=== PATIENT | female | born 1945 | race Caucasian/White ===

== ENCOUNTER 2017-08-03 22:20 | Emergency (ER) | payer MEDICARE, BC ==
--- NOTE | 2017-08-03 23:38 | ED ---
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 Patient states she landed on her knees and hit her glasses on the floor causing her laceration over bridge of nose. Admits to swelling and bruising. Denies trouble breathing through the nose and vision changes. Did not hit her head. Denies anticoagulant use. Denies epistaxis. Denies dizziness. Right wrist is painful with movement however she is able to move it. States her right hand/wrist slammed down onto the floor she did not fall on outstretched hand. Also states of skin abrasion to right knee however is not painful. Denies any other injuries or pain at this time. No other complaints. 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 Bleeding is controlled. Did not hit back of head. PMHx HTN and thyroid disease. Denies numbness/tingling. Denies neck pain, headache, abdominal pain and weakness. - History of Current Complaint Stated Complaint: RT WRIST INJURY/NOSE LAC Hx Obtained From: Patient, Family/Internal Revenue Agent - Onset/Duration: Sudden Onset Aggravating: Nothing Alleviating: Compression Timing: Constant Onset Severity: Mild Current Severity: Mild Pain Intensity: 5 Pain Scale Used: 0-10 Numeric - Allergy/Home Medications Allergies/Adverse Reactions: Allergies Allergy/AdvReac Type Severity Reaction Status Date / Time Flu Virus Vaccine Allergy Edema Verified 10/31/15 10:13 Tetanus Toxoid Allergy Edema Verified 10/31/15 10:12 PMH/Surg Hx/FS Hx/Imm Hx Endocrine/Hematology History: Reports: Hx Thyroid Disease Cardiovascular History: Reports: Hx Hypertension - Cancer History Hx Chemotherapy: No Hx Radiation Therapy: No - Surgical History Surgery Procedure, Year, and Place: n/a - Immunization History Date of Tetanus Vaccine: Allergy Date of Influenza Vaccine: Allergy Immunizations Up to Date: Yes Infectious Disease History: No Infectious Disease History: Denies: Traveled Outside the [place] in Last 30 Days - Family History Known Family History: Positive: Hypertension - Social History Alcohol Use: Occasionally Substance Use Type: Reports: None Smoking Status (MU): Never Smoked Tobacco Review of Systems Constitutional: Negative Cardiovascular: Negative Respiratory: Negative Positive: Arthralgia, Myalgia, Decreased ROM, Edema - right hand/wrist Positive: Bruising - nasal bridge, Other - laceration, Neurological: Negative All Other Systems Reviewed And Are Negative: Yes Physical Exam Triage Information Reviewed: Yes Vital Signs On Initial Exam: Initial Vitals Temp Pulse Resp BP Pulse Ox 97.5 F 64 16 163/95 98 08/03/17 22:25 08/03/17 22:25 08/03/17 22:25 08/03/17 22:25 08/03/17 22:25 Vital Signs Reviewed: Yes Appearance: Positive: Well-Appearing, No Pain Distress, Well-Nourished Skin: Positive: Warm, Skin Color Reflects Adequate Perfusion, Dry, Other - 1cm linear laceration to bride of nose, bleeidng well controlled, well approximated without FB. minor small abrasion to right anterior knee w/o bleeding. Negative : Cold, Cyanosis @, Pale Head/Face: Positive: Other - nasal bridge laceration as noted above with surrounding edema and ecchymosis. Negative: Scalp - without hematoma Eyes: Positive: Normal, EOMI, Conjunctiva Clear ENT: Positive: Normal ENT inspection, Hearing grossly normal, Pharynx normal, Other - no septal hematoma, normal patent nares bl, no sign of epistaxis. Negative: Nasal congestion, Nasal drainage Neck: Positive: Supple, Nontender Respiratory/Lung Sounds: Positive: Clear to Auscultation, Breath Sounds Present. Negative: Rales, Rhonchi, Wheezes Cardiovascular: Positive: Normal, RRR, Pulses are Symmetrical in both Upper and Lower Extremities. Negative: Murmur, Rub Bowel Sounds: Positive: Present Musculoskeletal: Positive: Normal, Strength/ROM Intact, Pain @ - with movement and palpation of right wrist hand, however able and FROM, Edema Right - wrist/ hand mild when compared to left, Other - rest of MSK exam normal including right knee. Negative: Limited @, Interruption @, Abnormal @ Neurological: Positive: Normal, Sensory/Motor Intact, Alert, Oriented to Person Place, Time, CN Intact II-III, Reflexes Intact, NV Bundle Intact Distally, Normal Gait - Wendy Coma Scale Coma Scale Total: 15 Procedures - Laceration/Wound Repair 1 Location: face - nasal bridge Description: Stellate Length, Depth and Shape: ~1cm Betadine Prep?: No Irrigated w/ Saline (ccs): 200 Laceration/Wound Explored: clean, no foreign body removed Closure: Skin Adhesive, SteriStrips - 2 Sterile Dressing Applied?: Yes - telfa Diagnostics - Vital Signs Vital Signs Temp Pulse Resp BP Pulse Ox 08/03/17 22:25 97.5 F 64 16 163/95 98 - Laboratory Lab Statement: Any lab studies that have been ordered have been reviewed, and results considered in the medical decision making process. - Radiology right hand/wrist Xray Interpretation: No Acute Changes - negative, arthitic changes Radiology Interpretation Completed By: ED Physician - Dr Omalley - CT maxillofacial CT Interpretation: Positive (See Comments) - nasal bridge comminuted and mildly depressed fracture CT Interpretation Completed By: Radiologist - and myself Re-Evaluation - Re-Evaluation First Eval Re-Evaluation Time: 12:00 Change: Unchanged - patient still feeling fine without significant pain. updated on xray results, aware still awaiting for CT results Laceration Repair Course/Dx - Course Course Of Treatment: laceration was glued and steri stripped without complication. patient tolerate procedure well. well approximated. wrist/hand xray and CT maxillofacial obtained to r/o james. did show nasal bone fracture. will treat as open fracture due to laceration. given first dose of keflex at ED, continue at home. knee was dressed with triple anitbiotic ointment and bandage. no other concerns at this time. otherwise healthy individual. aware of worsening signs and symptoms. no other complaints, slightly elevated BP that improved at discharge. Patient already diagnosed with HTN encouraged to recheck with PCP. Ice and continue tylenol/ibuprofen as needed. Follow up with PCP and ENT. Leland wrap for hand to help with swelling, re- image if pain increases/worsens/persists. - Differential Dx Differental Diagnoses: Abrasion, Fracture, Laceration, Other - hand sprain, hand fracture, knee abrasion, hand contusion, nose laceration, nasal fracture, open fracture - Clinical Impression Provider Diagnoses: Contusion of hand, right, Laceration of nose, Abrasion of knee, right, Open nasal fracture Discharge - Discharge Plan Condition: Stable Disposition: HOME Prescriptions: Cephalexin CAP* [Keflex CAP*] 250 mg PO TID #29 cap Patient Education Materials: Nasal Fracture (ED), Laceration (ED), Contusion in Adults (ED), Skin Adhesive Care (ED) Referrals: Durant,Shital, MD [Primary Care Provider] - Abhi Villanueva MD [Medical Doctor] - Additional Instructions: Do not get laceration wet for 24-48 hours. Keep clean and dry. Let steri strips and glue remove themselves, do not pick at. Once fall off, apply triple anitbiotic ointment. Take prescribed antibiotic as directed. Please call and make an appointment with ENT for follow up on nasal fracture. Any new or worsening symptoms please seek medical attention promptly. Follow up with PCP. Continue tylenol/ibuprofen as needed for pain, apply ice for bruising and swelling.
[2017-08-04] MEDS ORDERED: Cephalexin CAP* 500 MG PO ONE (01:24)
[2017-08-04 02:54] VITALS: BP 145/77
--- NOTE | 2017-08-04 07:38 | RAD ---
Indication: Fall. Right wrist injury 3 views of the right wrist demonstrates no definite fracture. Degenerative changes of the first carpometacarpal joint as well as the scaphotrapezium joint is noted. IMPRESSION: No definite fracture of the wrist is noted although degenerative changes are noted.
--- NOTE | 2017-08-04 07:43 | RAD ---
Indication: Right hand injury. 2 views of the right hand demonstrates subluxation of the fifth metacarpal. No fractures are noted. Degenerative changes of the trapezium first metacarpal joint is noted. Additional imaging is suggested. IMPRESSION: There appears to be subluxation of the fifth metacarpal from the hamate.
--- NOTE | 2017-08-04 07:53 | RAD ---
Indication: Facial injury after fall. CT of the facial bones was obtained in the axial plane. Sagittal and coronal reconstructed images were obtained. The skull base demonstrates no fracture. Mastoid air cells and ethmoid air cells are unremarkable. The mandible and temporomandibular joints are unremarkable. No fracture is noted. The maxilla and the pterygoid plates are intact without evidence of fracture. There is a minimally comminuted fracture of the nasal arch. There is slight deviation of the bony structures towards the right. The skull base demonstrates no fracture. IMPRESSION: Mildly Comminuted fracture of the nasal arch. Slight nasal deviation to the right is noted. No other fractures are identified.
== END 2017-08-04 01:35 | disposition home or self-care (01) ==
LOC: ED 22:20
DX: S02.2XXB Fracture of nasal bones, initial encounter for open fracture (principal); S60.221A Contusion of right hand, initial encounter; S80.211A Abrasion, right knee, initial encounter; W10.9XXA Fall (on) (from) unspecified stairs and steps, initial encounter; Y92.9 Unspecified place or not applicable; Z88.7 Allergy status to serum and vaccine
CPT/HCPCS: 12011; 70486; 99282; A9270-GY

== ENCOUNTER 2017-08-12 15:50 | Day surgery (SDC) | payer MEDICARE, BC ==
[2017-08-12] MEDS ORDERED: Buffered Lidocaine 0.9% SYRIN* 5 ML/SYR SYRINGE ONE (16:03)
[2017-08-12] MEDS ORDERED: ceFAZolin 2 GM PREMIX (*) 2 GM/50 ML BAG IVPB ONE (17:33)
[2017-08-12] MEDS ORDERED: Ketorolac INJ* 30 MG/ML 1 ML VIAL ONE (17:37)
[2017-08-12] MEDS ORDERED: Propofol* 10 MG/ML 20 ML BTL IV PUSH ONE ×2 (17:37→19:03)
[2017-08-12] MEDS ORDERED: Dexamethasone IV* 4 MG/ML 1 ML (4 MG) ONE (17:37)
[2017-08-12] MEDS ORDERED: Ondansetron INJ* 2 MG/ML VIAL ONE (17:37)
[2017-08-12] MEDS ORDERED: Midazolam* 1 MG/ML 2 ML VIAL (2 MG) ONE (17:38)
[2017-08-12] MEDS ORDERED: fentaNYL* 50 MCG/ML 2 ML VIAL (100 MCG VIAL) ONE ×2 (17:38→18:28)
[2017-08-12] MEDS ORDERED: Bupivacaine 0.25% SDV* 30 ML ONE (17:39)
[2017-08-12] MEDS ORDERED: DiMENhydriNATE IV* 50 MG/ML VIAL IV PUSH PRN (18:25)
[2017-08-12] MEDS ORDERED: Naloxone* 0.4 MG/ML 1 ML VIAL IV PRN (18:25)
[2017-08-12] MEDS ORDERED: HYDROcodone/ACETAMIN 5-325 MG* 1 TAB PO PRN (18:25)
[2017-08-12] MEDS ORDERED: fentaNYL* 50 MCG/ML 2 ML VIAL (100 MCG VIAL) IV PRN (18:25)
[2017-08-12] MEDS ORDERED: Ondansetron INJ* 2 MG/ML VIAL IV PRN (18:25)
[2017-08-12 20:30] VITALS: BP 131/64
[2017-08-12] MEDS: oxyCODONE/Acetamin 5/325 MG* TAB PO PRN ×2 (20:53→20:54)
[2017-08-12] MEDS ORDERED: oxyCODONE/Acetamin 5/325 MG* TAB ONE (20:53)
--- NOTE | 2017-08-14 01:36 | OP ---
DATE OF OPERATION: 08/12/17 - [facility] DATE OF : 49 SURGEON: Gavino Jacobsen MD DRAINAGE INSPECTOR: MERCY Dean ANESTHESIOLOGIST: Dr. Urena. ANESTHESIA: General. PRE-OP DIAGNOSIS: Right 5th carpometacarpal dislocation. POST-OP DIAGNOSIS: Right 5th carpometacarpal dislocation. OPERATIVE PROCEDURE: Open reduction and internal fixation, right 5th carpometacarpal dislocation. ESTIMATED BLOOD LOSS: 2 mL. COMPLICATIONS: None. INDICATIONS: Alexa had a fall about a week before surgery. The 5th CMC joint had dislocated volarly. I told her about the need to align and to reduce and to pin the joint. She understood this and I told her that I tried to do it close before and it reduced close, we would do an open. FINDINGS: The joint was extremely unstable. I could not get the rotation corrected via closed reduced, so we proceeded to open reduction. DESCRIPTION OF PROCEDURE: Alexa was seen in the preoperative holding area. The correct site, side, and procedure were identified. We came back to the operating room. The arm was prepped and draped in the usual fashion. A time- out was performed. I began by attempting a closed reduction maneuver using the mini C-arm to confirm the reduction. I could get it closed, but I could never get it derotated. I tried several times. It was extremely unstable. I could overcorrect and it would go out dorsally. It also wanted to go out ulnarly and volarly. Ultimately, it failed to reduce satisfactorily closed and so, we decided to open the joint. The arm was exsanguinated with the Esmarch and the tourniquet inflated to 250 mmHg. I made a lazy-S incision over the dorsal aspect of the right 5th CMC joint. Dissection was carried down to the subcutaneous tissue. I came just radial to the extensor tendons to the small finger. I opened up the capsule and raised subperiosteal and capsular flaps to expose the 5th CMC joint. There was abundant interposed soft tissue between the base of the 4th and base of the 5th metacarpal. This was all excised with a rongeur, copious irrigation, and suction. Once I had this all removed, I could reduce the joint. I placed one 0.045 K-wire across the base of the 5th and into the base of the 4th metacarpal. I took a second 0.062 K- wire and drilled it across the base of the 5th metacarpal down into the carpus. The joint was nicely reduced. The alignment was now completely right. Fluoroscopic imaging looked good. Everything looked stable. So, we went ahead and irrigated out the wound, the capsule and periosteum was closed deeply with a 5-0 Prolene suture. The skin was closed with 4-0 Monocryl and Steri-Strips. The area was infiltrated with 0.25% plain Marcaine. The wires were bent and clipped outside the skin. They were dressed with Xeroform and 4x4, and an ulnar gutter splint was applied with the hand in a protected position. Tourniquet was deflated and the hand pinked up immediately. She was taken to recovery room in stable condition. [id number]/CPS #: [id number] [place]
== END 2017-08-12 20:59 | disposition home or self-care (01) ==
LOC: OR 15:50
PROVIDERS: ATTEND Orthopaedic Surgery Hand Surgery
DX: S63.054A Dislocation of other carpometacarpal joint of right hand, initial encounter (principal); W10.8XXA Fall (on) (from) other stairs and steps, initial encounter; Y92.9 Unspecified place or not applicable; G47.33 Obstructive sleep apnea (adult) (pediatric); E03.9 Hypothyroidism, unspecified; E78.00 Pure hypercholesterolemia, unspecified; Z85.528 Personal history of other malignant neoplasm of kidney; I10 Essential (primary) hypertension
CPT/HCPCS: A9270-GY; C1776; J0690; J1100; J1885; J2250; J2405; J2704; J3010

== ENCOUNTER 2020-08-16 07:29 | Observation (INO) ==
[~2020-08-16 07:29] MED LIST: Buffered Lidocaine 1% SYRIN 1 ml INTRADERM ONE; Famotidine IV 10 MG/ML 2 ml VIAL (20 mg) IV ONE; Lactated Ringers 1000 ml BAG 1,000 ML IV SCH
[2020-08-16] MEDS ORDERED: Famotidine IV 10 MG/ML 2 ml VIAL (20 mg) ONE (08:22)
[2020-08-16] MEDS ORDERED: ceFAZolin 2 GM PREMIX 2 GM/50 ML BAG ONE (08:22)
[2020-08-16] MEDS ORDERED: Midazolam 2 mg/2 ml VIAL 1 mg/ml 2 ml VIAL (2 mg) ONE (08:51)
[2020-08-16] MEDS ORDERED: Ondansetron 4 mg VIAL 2 MG/ML 2 ml VIAL ONE (08:52)
[2020-08-16] MEDS ORDERED: Propofol 10 MG/ML 20 ML BTL ONE (08:52)
[2020-08-16] MEDS ORDERED: Rocuronium 50 mg VIAL 10 mg/ml 5 ml VIAL (50 mg) ONE ×2 (09:15)
[2020-08-16] MEDS ORDERED: fentaNYL 100 mcg/2 ml 50 MCG/ML VIAL ONE (09:15)
[2020-08-16] MEDS ORDERED: Ketamine HCL 50 mg/ml 10 ml VIAL (500 MG) ONE (09:41)
[2020-08-16] MEDS ORDERED: Dexamethasone IV 4 MG/ML VIAL 1 ml VIAL ONE (09:46)
[2020-08-16] MEDS ORDERED: Acetaminophen IV 1 GM/100ML 100 ML ONE (10:07)
[2020-08-16] MEDS ORDERED: Naloxone 0.4 mg VIAL 0.4 mg/ml 1 ml VIAL IV PRN (10:31)
[2020-08-16] MEDS ORDERED: DiMENhydriNATE IV 50 mg/ml 1 ml VIAL IV PUSH PRN (10:31)
[2020-08-16] MEDS ORDERED: ROPIVACAINE 5 MG/ML 30 ML BTL (0.5%) ONE (11:13)
[2020-08-16] MEDS ORDERED: HYDROmorphone 1 MG/1 ML SYRINGE ONE ×2 (11:34→12:18)
[2020-08-16] MEDS ORDERED: diPHENhydraMINE IV 50 MG/ML 1 ml VIAL (BENADRYL) IV PRN (11:57)
[2020-08-16] MEDS ORDERED: Morphine 2 MG/ML SYRINGE IV PRN (11:57)
[2020-08-16] MEDS ORDERED: Magnesium Hydroxide LIQ 30 ML UDC PO PRN (11:57)
[2020-08-16] MEDS ORDERED: Lactulose 30 ml UDC PO PRN (11:57)
[2020-08-16] MEDS ORDERED: Ondansetron ODT 4 mg TAB 4 MG TAB PO PRN (11:57)
[2020-08-16] MEDS ORDERED: Ondansetron 4 mg VIAL 2 MG/ML 2 ml VIAL IV PRN (11:57)
[2020-08-16] MEDS ORDERED: diPHENhydraMINE 25 mg TAB PO PRN (11:57)
[2020-08-16] MEDS ORDERED: Lactated Ringers 1000 ml BAG 1,000 ML IV SCH (12:00)
[2020-08-16] MEDS: HYDROmorphone 1 MG/1 ML SYRINGE IV PRN ×3 (12:20→12:42)
[2020-08-16] MEDS: ceFAZolin 1 GM ADVAN 1 GM in NS 0.9% 50 ML 50 ML IVPB SCH (18:37)
[2020-08-16] MEDS: Magnesium Hydroxide LIQ 30 ML UDC PO SCH (22:28)
[2020-08-17] MEDS: ceFAZolin 1 GM ADVAN 1 GM in NS 0.9% 50 ML 50 ML IVPB SCH ×2 (01:43→08:00)
[2020-08-17 05:14] LABS: Hematocrit 30 % (35-47); Hemoglobin 10.3 g/dL (12.0-16.0); Mean Platelet Volume 7.8 fL (7.4-10.4); Platelet Count 222 10^3/uL (150-450)
[2020-08-17 05:38] LABS: BUN/Creatinine Ratio 23.2 (8-20); Calcium 9.1 mg/dL (8.6-10.3); EGFR African American 100.9 (>60); EGFR Non-African American 83.4 (>60); Potassium 4.5 mmol/L (3.5-5.0)
[2020-08-17] MEDS: Magnesium Hydroxide LIQ 30 ML UDC PO SCH (08:00)
[2020-08-17] MEDS ORDERED: Vitamin THERAPEUTIC TAB PO SCH (09:00)
[2020-08-17] MEDS ORDERED: Lisinopril/HCTZ 10/12.5 TA(NF) PO SCH (09:00)
[2020-08-17 11:31] VITALS: BP 132/54
== END 2020-08-17 14:45 | disposition home or self-care (01) ==
LOC: AA 07:29 → INTOOBSV 07:29 → SSU 13:18
PROVIDERS: ADMIT Orthopaedic Surgery Adult Reconstructive Orthopaedic Surgery; ATTEND Orthopaedic Surgery Adult Reconstructive Orthopaedic Surgery

== ENCOUNTER 2021-09-28 05:49 | Observation (INO) ==
[2021-09-28] MEDS ORDERED: Lactated Ringers 1000 ml BAG 1,000 ML IV SCH (06:00)
[2021-09-28] MEDS ORDERED: Buffered Lidocaine 1% SYRIN 1 ml INTRADERM ONE (06:00)
[2021-09-28] MEDS ORDERED: ceFAZolin 1 GM ADVAN 1 GM ADDV.VIAL IVPB ONE (06:08)
[2021-09-28] MEDS ORDERED: Propofol 10 MG/ML 20 ML BTL ONE ×2 (06:46→07:07)
[2021-09-28] MEDS ORDERED: Lidocaine 2% PF 5 ML VIAL ONE (06:46)
[2021-09-28] MEDS ORDERED: Midazolam 5 mg/5 ml VIAL 1 mg/ml 5 ml VIAL (5 mg) ONE (06:58)
[2021-09-28] MEDS ORDERED: Ketamine HCL 50 mg/ml 10 ml VIAL (500 MG) ONE ×2 (06:58→08:58)
[2021-09-28] MEDS ORDERED: Rocuronium 50 mg VIAL 10 mg/ml 5 ml VIAL (50 mg) ONE ×2 (07:06→08:25)
[2021-09-28] MEDS ORDERED: fentaNYL 250 mcg/5 ml 50 MCG/ML 5 ml VIAL (250 MCG) ONE (07:09)
[2021-09-28] MEDS ORDERED: Prochlorperazine 5 mg/ml 2 ml VIAL (10 mg) IV PRN (07:23)
[2021-09-28] MEDS ORDERED: Naloxone 0.4 mg VIAL 0.4 mg/ml 1 ml VIAL IV PRN (07:23)
[2021-09-28] MEDS ORDERED: HYDROmorphone 1 MG/1 ML SYRINGE IV PRN (07:23)
[2021-09-28] MEDS ORDERED: diPHENhydraMINE IV 50 MG/ML 1 ml VIAL (BENADRYL) IV PRN ×2 (07:23→10:14)
[2021-09-28] MEDS ORDERED: Acetaminophen IV 1 GM/100ML 0 ML IV ONE (08:09)
[2021-09-28] MEDS ORDERED: Dexamethasone IV 4 MG/ML VIAL 1 ml VIAL ONE (08:09)
[2021-09-28] MEDS ORDERED: Ondansetron 4 mg VIAL 2 MG/ML 2 ml VIAL ONE (08:09)
[2021-09-28] MEDS ORDERED: EPHEDrine (Pressors) 50 MG/ML VIAL ONE (08:34)
[2021-09-28] MEDS ORDERED: Scopolamine 1 mg/72hr PATCH ONE ×2 (08:37→08:39)
[2021-09-28] MEDS ORDERED: Phenylephrine 40 mcg/mL 10mL (400mcg) SYRINGE ONE (08:39)
[2021-09-28] MEDS ORDERED: HYDROmorphone 0.5 MG/0.5 ML SYRINGE ONE (09:07)
[2021-09-28] MEDS ORDERED: Ropivacaine 5 MG/ML 20 ML VIAL 0.5% (100 MG) ONE (09:51)
[2021-09-28] MEDS ORDERED: Ondansetron 4 mg VIAL 2 MG/ML 2 ml VIAL IV PRN (10:14)
[2021-09-28] MEDS ORDERED: Lactulose 30 ml UDC PO PRN (10:14)
[2021-09-28] MEDS ORDERED: Magnesium Hydroxide LIQ 30 ML UDC PO PRN (10:14)
[2021-09-28] MEDS ORDERED: diPHENhydraMINE 25 mg TAB PO PRN (10:14)
[2021-09-28] MEDS ORDERED: Ondansetron ODT 4 mg TAB 4 MG TAB PO PRN (10:14)
[2021-09-28] MEDS ORDERED: CMCS: Olopatadine 0.1% OPHTH (NF) 1 DROP BTL BOTH EYES PRN (10:23)
[2021-09-28] MEDS ORDERED: Estradiol VAG CM (NF) 1 APPLIC TUBE VAGINAL SCH (11:00)
[2021-09-28] MEDS: Lactated Ringers 1000 ml BAG 1,000 ML IV SCH ×2 (12:03→22:26)
[2021-09-28] MEDS: ceFAZolin 1 GM ADVAN 1 GM in NS 0.9% 50 ML 50 ML IVPB SCH ×2 (15:49→22:55)
[2021-09-28] MEDS: Aspirin EC 325 mg TAB.EC PO SCH (20:51)
[2021-09-28] MEDS: Magnesium Hydroxide LIQ 30 ML UDC PO SCH ×2 (20:51→20:52)
[2021-09-29 06:58] LABS: Hematocrit 36 % (35-47); Hemoglobin 12.3 g/dL (12.0-16.0); Mean Platelet Volume 8.1 fL (7.4-10.4); Platelet Count 201 10^3/uL (150-450)
[2021-09-29] MEDS: ceFAZolin 1 GM ADVAN 1 GM in NS 0.9% 50 ML 50 ML IVPB SCH (07:15)
[2021-09-29 07:26] LABS: Calcium 8.8 mg/dL (8.6-10.3); Potassium 4.4 mmol/L (3.5-5.0); eGFR CKD-EPI 92.7 (>60)
[2021-09-29] MEDS: Aspirin EC 325 mg TAB.EC PO SCH (08:20)
[2021-09-29] MEDS: Magnesium Hydroxide LIQ 30 ML UDC PO SCH (08:27)
[2021-09-29] MEDS ORDERED: Vitamin THERAPEUTIC TAB PO SCH (09:00)
[2021-09-29] MEDS ORDERED: Lisinopril/HCTZ 10/12.5 TA(NF) PO SCH (09:00)
[2021-09-29 11:58] VITALS: BP 141/77
== END 2021-09-29 14:45 | disposition home or self-care (01) ==
LOC: INTOOBSV 05:49 → AA 05:49 → SSU 12:02
PROVIDERS: ADMIT Orthopaedic Surgery Adult Reconstructive Orthopaedic Surgery; ATTEND Orthopaedic Surgery Adult Reconstructive Orthopaedic Surgery